=== PATIENT | male | born 1995 | race Caucasian/White ===

== ENCOUNTER 2021-06-14 11:17 | Emergency (ER) | payer OTHER, SELFPAY ==
[2021-06-14 11:27] VITALS: BP 141/71; PULSE 74; RESP 16; TEMP 36.7; O2SAT 100
--- NOTE | 2021-06-14 11:47 | ED.GENADULT ---
HPI - General Adult General Chief complaint: Abdominal Pain Stated complaint: Abdominal pain Source: patient Mode of arrival: ambulatory Limitations: no limitations History of Present Illness HPI narrative: Patient is a 26-year-old male who presents to the [facility] via POV for evaluation of left lower abdominal pain that began 1 day ago. Additionally, he reports loose stools. He reports a constant dull ache that changes to sharp and stabbing with movement. Denies taking OTC meds for symptoms. Denies past abdominal medical history. Pertinent negatives fever, chills, sweats, malaise, poor p.o. intake, change in appetite, recent weight loss, lymphadenopathy, headache, sore throat, dizziness, LOC, urinary sxs, back/flank pain, extremity paresthesias, blood in stool, nausea, vomiting, diarrhea, constipation, belching, bloating, dry mouth, heartburn, jaundice, vomiting blood, and testicular pain. Improves when remaining still and worsens with standing and stretching. Patient denies EtOH intake/abuse. Denies abdominal history. Related Data Home Medications Medication Instructions Recorded Confirmed No Home Medications 06/14/21 06/14/21 Allergies Allergy/AdvReac Type Severity Reaction Status Date / Time No Known Allergies Allergy Verified 06/14/21 11:35 Review of Systems Review of Systems: Denies past abdominal medical history. Denies fever, chills, sweats, malaise, poor p.o. intake, change in appetite, recent weight loss, lymphadenopathy, headache, sore throat, dizziness, LOC, urinary sxs, back/flank pain, extremity paresthesias, blood in stool, nausea, vomiting, diarrhea, constipation, belching, bloating, dry mouth, heartburn, jaundice, vomiting blood, and testicular pain. PMFSH Comments I have reviewed and agree with the patient's past medical, surgical, social, and family hx as documented by the RN. There is no relevant family history pertinent to the presenting complaint. Exam Narrative: GENERAL: Well-appearing, well-nourished, and in no acute distress. HEAD: Normocephalic, atraumatic. No sinus tenderness or facial swelling appreciated. EYES: PERRLA and EOMI. No evidence of erythema, swelling, or drainage. ENT: Mucous membranes moist and pink. Uvula is midline without erythema and swelling. No evidence of petechial rash, cobblestoning, lesions, ulcers, erythema, swelling, exudates, peritonsillar abscess, tenting, or drooling. Breath odor and voice normal. NECK: Supple. No Lymphadenopathy or nuchal rigidity appreciated. CHEST: Bilateral lung holland are clear to auscultation. No respiratory distress. No evidence of cough or pleuritic cp upon examination. HEART: Regular rate and rhythm. No murmur, gallop, or rub heard. ABDOMEN: Soft, nondistended, hypo-active bowel sounds in all quadrants. Mild left lower quadrant tenderness appreciated upon palpation. No guarding. No rebound tenderness. No pulsatile or palpable abdominal mass(es). No CVAT EXTREMITIES: Normal range of motion. No edema. SKIN: Warm, dry, no rash. Excellent skin turgor. NEURO: No focal deficits. Alert and oriented x3. Course Vital Signs Vital signs: Vital Signs Temperature 98.1 F 06/14/21 11:27 Pulse Rate 74 06/14/21 11:27 Respiratory Rate 16 06/14/21 11:27 Blood Pressure 141/71 H 06/14/21 11:27 Pulse Oximetry 100 06/14/21 11:27 Temperature 98.1 F 06/14/21 11:27 Pulse Rate 74 06/14/21 11:27 Respiratory Rate 16 06/14/21 11:27 Blood Pressure 141/71 H 06/14/21 11:27 Pulse Oximetry 100 06/14/21 11:27 Due to an elevated blood pressure, I had a detailed discussion with the patient and/or guardian regarding the need for follow-up with their primary care provider within the next 3-4 days. Patient verbalized understanding and agreed. Recommended ER for higher level of care. Patient verbalized understanding and agreed. The patient/guardian displays adequate decision making capability and despite a detailed discus
== END 2021-06-14 11:45 | disposition short-term general hospital (02) ==
PROVIDERS: Emergency Provider Nurse Practitioner Family
DX: R10.32 Left lower quadrant pain (principal)
CPT/HCPCS: 99212; G0463

== ENCOUNTER 2021-06-14 12:17 | Emergency (ER) | payer OTHER, SELFPAY ==
--- NOTE | ~2021-06-14 | CT_ITS ---
EXAMINATION: CT abdomen pelvis w con DATE: 06/14/2021 16:27 INDICATION: Left lower quadrant abdominal pain TECHNIQUE: Computed tomography (CT) of the abdomen and pelvis was performed with 100 mL Omnipaque-350 intravenous contrast. Automated exposure control and iterative reconstruction technique were employe d. The dose-length product was 946.16 mGy-cm. COMPARISON: None FINDINGS: Lung bases are clear. Heart size is normal. No pericardial or pleural effusion. Numerous gallstones t hroughout the normal gallbladder. Liver is normal. No intra-axial hepatic biliary ductal dilation. Sp krysta, pancreas, bilateral adrenal glands and kidneys are normal. Normal appendix. No bowel obstructio n. There is prominent inflammatory stranding surrounding an ovoid region of fat attenuation with tiny central vessel which is positioned along the anterior margin of the proximal sigmoid colon consisten t with epiploic appendagitis. Bladder is normal. Minimal likely reactive free fluid in the deep pelvi s. No abscess or free intraperineal gas. No pathologically enlarged abdominal or pelvic lymphadenopat hy. Bones are unremarkable. IMPRESSION: 1. Epiploic appendagitis at the proximal sigmoid colon. 2. Cholelithiasis. Reviewed, dictated and finalized at location A.
[2021-06-14 12:18] VITALS: BP 139/79; PULSE 80; RESP 18; TEMP 36.9; O2SAT 99
[2021-06-14 12:35] LABS: Basophils Absolute Auto 0.1 K/mm3 (0.0-0.1); Basophils Percent Auto 0.8 % (0.2-1.2); Eosinophils Absolute Auto 0.1 K/mm3 (0-0.3); Eosinophils Percent Auto 0.8 % (0-4.4); Hematocrit 47.5 % (42.0-52.0); Hemoglobin 16.8 g/dL (14.0-18.0); Immature Granulocyte Absolute 0.07 K/mm3 (0.00-0.031); Immature Granulocyte Percent A 0.7 % (0-0.5); Lymphocytes Absolute Auto 3.31 K/mm3 (0.9-3.2); Lymphocytes Percent Auto 33.5 % (18.3-44.2); Mean Corpuscular HGB Conc 35.4 g/dl (32-36); Mean Corpuscular Hemoglobin 31.1 pg (26-34); Mean Corpuscular Volume 87.8 fl (80-100); Mean Platelet Volume 10.5 fl (7.4-10.4); Monocytes Absolute Auto 0.6 K/mm3 (0.1-0.6); Monocytes Percent Auto 5.8 % (2.6-8.5); Neutrophils Absolute Auto 5.8 K/mm3 (1.3-6.7); Neutrophils Percent Auto 58.4 % (45.5-73.1); Platelet Count Result 269 k/mm3 (150-375); Red Blood Count 5.41 M/mm3 (4.6-6.20); Red Cell Distribution Width 11.9 % (11.5-14.5); White Blood Count 9.9 K/mm3 (4.5-10.0)
[2021-06-14 12:50] LABS: Alanine Aminotransferase 38 U/L (4-50); Albumin Level 4.8 g/dL (3.5-5.1); Alkaline Phosphatase 103 U/L (38-126); Anion Gap 10 mmol/L (8-16); Aspartate Amino Transferase 33 U/L (17-59); Bilirubin,Total 1.4 mg/dL (0.2-1.3); Blood Urea Nitrogen 20 mg/dL (9-20); Carbon Dioxide 25 mmol/L (22-30); Chloride 100 mmol/L (98-107); Estimated CRCL calculation 104 ml/min; Estimated Glomerular Filt Rate > 60; Glucose 94 mg/dL (65-110); Lipase 43 U/L (23-300); Potassium 4.1 mmol/L (3.4-5.0); Sodium 135 mmol/L (137-145)
[2021-06-14 13:28] LABS: Add Urine Microscopic? YES; Appearance Urine Clear (Clear); Bacteria Urine Trace /hpf; Bilirubin Urine Negative (Negative); Blood Urine Negative (Negative); Color Urine Yellow (Yellow); Glucose Urine UA Negative (Negative); Ketones Urine Negative (Negative); Leukocyte Esterase Ur Negative LEU/UL (Negative); Mucus Urine Rare /lpf; Nitrate Urine Negative (Negative); Protein Urine 1+ mg/dL (Negative); Specific Grav Ur 1.029 (1.001-1.035); Urobilinogen Urine Negative mg/dL (<2.0)
--- NOTE | 2021-06-14 16:06 | ED.ABDPAIN ---
HPI - Abdominal Pain General Chief Complaint: Abdominal Pain Stated Complaint: ABD PAIN Time Seen by Provider: 06/14/21 15:50 Source: patient Mode of arrival: ambulatory Limitations: no limitations History of Present Illness HPI narrative: This is a 26-year-old male that presents to the emergency department for left lower quadrant abdominal pain since yesterday. Reports the pain is constant in nature and dull. Sometimes it is sharp intermittently. It does get worse sometimes when he moves around. Reports pain in abdomen with urination. Denies fever, nausea, vomiting, or hematuria. Related Data Home Medications Medication Instructions Recorded Confirmed No Home Medications 06/14/21 06/14/21 Allergies Allergy/AdvReac Type Severity Reaction Status Date / Time Penicillins Allergy Hives Verified 06/14/21 14:10 Review of Systems Review of Systems: CONSTITUTIONAL: Denies fever GASTROINTESTINAL: Reports abdominal pain. Denies nausea, vomiting, or diarrhea. GENITOURINARY: Reports dysuria. Denies hematuria. All systems reviewed & are unremarkable except as noted in HPI and below PMFSH Past Medical History Medical History (Updated 06/14/21 @ 16:52 by July Booker PA-C) No active medical problems Social History Social History (Updated 06/14/21 @ 16:07 by July Booker PA-C) Substance use: never Exam Narrative: GENERAL: Well-appearing, well-nourished, and in no acute distress. HEAD: Normocephalic, atraumatic. EYES: EOMI. CHEST: Clear to auscultation. No respiratory distress. No wheezes rales or rhonchi HEART: Regular rate and rhythm. No murmur heard. Normal peripheral pulses. ABDOMEN: Soft, nondistended, normal active bowel sounds. Tender to palpation in the left lower quadrant, without guarding. No CVA tenderness EXTREMITIES: Normal range of motion. No edema. SKIN: Warm, dry, no rash. NEURO: No focal deficits. Alert and oriented x3. PSYCH: Normal mood and affect Course Vital Signs Vital signs: Vital Signs Temperature 98.5 F 06/14/21 12:18 Pulse Rate 80 06/14/21 12:18 Respiratory Rate 18 06/14/21 12:18 Blood Pressure 139/79 06/14/21 12:18 Pulse Oximetry 99 06/14/21 12:18 Temperature 98.5 F 06/14/21 12:18 Pulse Rate 80 06/14/21 12:18 Respiratory Rate 18 06/14/21 12:18 Blood Pressure 139/79 06/14/21 12:18 Pulse Oximetry 99 06/14/21 12:18 MDM - Abdominal Pain MDM Narrative Medical decision making narrative: Patient presents the emergency department for left lower quadrant abdominal pain present since yesterday. He is afebrile and nontoxic-appearing. Vitals are stable. CBC and metabolic panel without concerning findings. Lipase is normal. UA without evidence of infection. CT scan of the abdomen and pelvis shows epiploic appendagitis. Also shows cholelithiasis. Patient was updated on case findings. Instructed that this is a self-limiting condition. He will be given primary doctor for follow-up as needed. He was given warnings to return to the ER Lab Data Attestation: I reviewed the patient's lab results. Result diagrams: 06/14/21 12:24 06/14/21 12:24 Labs: Lab Results 06/14/21 06/14/21 06/14/21 Range/Units 12:24 12:24 13:06 WBC 9.9 (4.5-10.0) K/mm3 RBC 5.41 (4.6-6.20) M/mm3 Hgb 16.8 (14.0-18.0) g/dL Hct 47.5 (42.0-52.0) % MCV 87.8 (80-100) fl MCH 31.1 (26-34) pg MCHC 35.4 (32-36) g/dl RDW 11.9 (11.5-14.5) % Plt Count 269 (150-375) k/mm3 MPV 10.5 H (7.4-10.4) fl Immature Gran % (Auto) 0.7 H (0-0.5) % Neut % (Auto) 58.4 (45.5-73.1) % Lymph % (Auto) 33.5 (18.3-44.2) % [place] % (Auto) 5.8 (2.6-8.5) % Eos % (Auto) 0.8 (0-4.4) % Baso % (Auto) 0.8 (0.2-1.2) % Lymph # (Auto) 3.31 H (0.9-3.2) K/mm3 [place] # (Auto) 0.6 (0.1-0.6) K/mm3 Eos # (Auto) 0.1 (0-0.3) K/mm3 Baso # (Auto) 0.1 (0.0-0.1) K/mm3 Abs Immat Gran (auto)
[2021-06-14 16:59] VITALS: BP 128/76; PULSE 82; RESP 18; O2SAT 100
== END 2021-06-14 17:02 | disposition home or self-care (01) ==
PROVIDERS: Emergency Medicine; Emergency Provider Emergency Medicine
DX: K63.89 Other specified diseases of intestine (principal); K80.20 Calculus of gallbladder without cholecystitis without obstruction
CPT/HCPCS: 36415; 74177; 80053; 81001; 83690; 85025; 99284; Q9967